=== PATIENT | male | born 2000 | race Caucasian/White ===

== ENCOUNTER 2020-06-09 21:50 | Emergency (ER) | payer BC, OTHER ==
[2020-06-09] MEDS ORDERED: Tobramycin 0.3% Ophth Drops 5 ML Bottle EYERT STA (22:15)
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
== END 2020-06-09 22:55 ==
LOC: FB.ED 21:50
DX: H18.821 Corneal disorder due to contact lens, right eye (principal); M25.551 Pain in right hip; F17.210 Nicotine dependence, cigarettes, uncomplicated; Z88.2 Allergy status to sulfonamides; V89.2XXA Person injured in unspecified motor-vehicle accident, traffic, initial encounter
CPT/HCPCS: 73502; 99284; A9270